=== PATIENT | male | born 1995 | race Two or more races ===

== ENCOUNTER 2017-05-02 10:41 | Emergency (ER) | payer MEDICAID, OTHER ==
[2017-05-02 11:00] VITALS: BP 111/70
[2017-05-02] MEDS ORDERED: Acetaminophen Soln 650 MG/20.3 ML UD Cup PO ONE (11:44)
[2017-05-02] MEDS ORDERED: LORazepam 2 MG/ML MDV IVPUSH ONE (11:44)
[2017-05-02] MEDS ORDERED: Sodium Chloride 0.9% 1,000 ML IV ONE (11:44)
--- NOTE | 2017-05-02 11:53 | EDM.PDOC ---
ED HPI GENERAL MEDICAL PROBLEM - General Chief Complaint: Neuro Symptoms/Deficits Stated Complaint: SEIZURE Time Seen by Provider: 05/02/17 11:24 Source of Information: Reports: Patient History Limitations: Reports: Language Barrier (Patient has broken romansh. Brother present to translate. ) - History of Present Illness INITIAL COMMENTS - FREE TEXT/NARRATIVE: Patient is a 21-year-old male with a history of epilepsy who experienced a grand mal seizure lasting approximately 2 minutes this morning at approximately 7:50. Patient was laying on the couch watching TV when this occurred. It was witnessed by his brother. Patient did not fall or hit his head. He did take about 5 minutes for the patient to come to and act appropriately. Since the seizure patient's had a headache with some dizziness and generalized body soreness. This is typical for the patient after experiencing a seizure. Last seizure was approximately 2 months ago. He did bite the right cheek and tip of the tongue. No incontinence to urine or stool There has been no changes to his medications. He has taken divalproex 500 mg extended release this morning. States the headache is located to his forehead with no radiation. Eyes are sensitive to light. No vision changes, loss of vision, or blurred vision. No recent fever or illness. Denies any stiff neck, SOB, chest pain, nausea/vomiting , abdominal pain, painful urination, weakness, numbness or tingling, or any additional complaints. Denies any recreational drug or alcohol use. Patient does smoke one pack per day. Drinks 2 monster energy drinks and caffeinated tea daily. Patient was diagnosed with epilepsy at 13 years of age of unknown etiology. He just recently moved from [place] to [place] in February. He does not have a primary care provider here locally. Headache Pain Score (Numeric/FACES): 4 - Related Data Allergies Allergy/AdvReac Type Severity Reaction Status Date / Time No Known Allergies Allergy Verified 05/02/17 11:48 Home Meds: Home Meds Divalproex Sodium [Divalproex Sodium ER] 250 mg PO BID #60 tab.sr.24h 05/02/17 [ Rx] Divalproex Sodium [Divalproex Sodium ER] 500 mg PO BID 05/02/17 [History] Past Medical History Neurological History: Reports: Seizure Social & Family History - Tobacco Use Smoking Status *Q: Current Every Day Smoker Years of Tobacco use: 7 Packs/Tins Daily: 1 - Caffeine Use Caffeine Use: Reports: None - Recreational Drug Use Recreational Drug Use: No ED ROS GENERAL - Review of Systems Review Of Systems: ROS reveals no pertinent complaints other than HPI. - Physical Exam Exam: See Below Exam Limited By: Language Barrier General Appearance: Alert, WD/WN, Other (Tired) Eye Exam: Bilateral Eye: EOMI, Nystagmus (none found), PERRL, Vision Changes ( none stated) Ears: Normal External Exam, Hearing Grossly Normal Nose: Normal Inspection Throat/Mouth: Normal Inspection, Normal Voice, No Airway Compromise, Evidence of Tongue Biting (and bite wound to the right cheek. ), Other Head Exam: Atraumatic, Normocephalic Neck: Normal Inspection, Supple, Non-Tender, Full Range of Motion. No: Lymphadenopathy (L), Lymphadenopathy (R) Respiratory/Chest: No Respiratory Distress, Lungs Clear, Chest Non-Tender Cardiovascular: Normal Peripheral Pulses, Regular Rate, Rhythm GI/Abdominal: Normal Bowel Sounds, Soft, Non-Tender, No Organomegaly, No Distention Neuro Exam (Abbreviated): Alert, Oriented, CN II-XII Intact, Normal Cognition, No Motor/Sensory Deficits, Other (Cerebellar function intact including: Finger- nose, [id number], rapid alternating movements. Patient has no facial droop. No slurred speech. No pronator drift. No weakness noted to the upper and lower extremities. No sensory deficits.) Back Exam: Normal Inspection Extremities: Normal Inspection, Normal Range of Motion, Non-Tender, No Pedal Edema, Normal Capillary Refill Psychiatric: Normal Affect, Normal Mood Skin Exam: Warm, Dry, Intact, Normal Color, No Rash Course - Vital Signs Last Recorded V/S: Last Vital Signs Temp 97.4 F 05/02/17 10:57 Pulse 69 05/02/17 10:57 Resp 16 05/02/17 10:57 BP 111/70 05/02/17 10:57 Pulse Ox 100 05/02/17 10:57 - Orders/Labs/Meds Labs: Laboratory Tests 05/02/17 05/02/17 Range/Units 11:55 11:55 WBC 7.61 (4.23-9.07) K/mm3 RBC 5.35 (4.63-6.08) M/mm3 Hgb 16.4 (13.7-17.5) gm/L Hct 45.4 (40.1-51.0) % MCV 84.9 (79.0-92.2) fl MCH 30.7 (25.7-32.2) pg MCHC 36.1 H (32.2-35.5) g/dl RDW Std Deviation 36.7 (35.1-43.9) fL Plt Count 155 L (163-337) K/mm3 MPV 11.0 (9.4-12.3) fl Neut % (Auto) 60.2 (34.0-67.9) % Lymph % (Auto) 29.0 (21.8-53.1) % [place] % (Auto) 8.9 (5.3-12.2) % Eos % (Auto) 1.3 (0.8-7.0) Baso % (Auto) 0.3 (0.1-1.2) % Neut # (Auto) 4.58 (1.78-5.38) K/mm3 Lymph # (Auto) 2.21 (1.32-3.57) K/mm3 [place] # (Auto) 0.68 (0.30-0.82) K/mm3 Eos # (Auto) 0.10 (0.04-0.54) K/mm3 Baso # (Auto) 0.02 (0.01-0.08) K/mm3 Sodium 141 (136-145) mEq/L Potassium 3.7 (3.5-5.1) mEq/L Chloride 104 (98-107) mEq/L Carbon Dioxide 28 (21-32) mEq/L Anion Gap 12.7 (5-15) BUN 8 (7-18) mg/dL Creatinine 0.7 (0.7-1.3) mg/dL Est Cr Clr Drug Dosing 157.95 mL/min Estimated GFR (MDRD) > 60 (>60) mL/min BUN/Creatinine Ratio 11.4 L (14-18) Glucose 107 H (74-106) mg/dL Calcium 8.7 (8.5-10.1) mg/dL Total Bilirubin 0.7 (0.2-1.0) mg/dL AST 17 (15-37) U/L ALT 30 (16-63) U/L Alkaline Phosphatase 61 (46-116) U/L Total Protein 6.8 (6.4-8.2) g/dl Albumin 3.8 (3.4-5.0) g/dl Globulin 3.0 gm/dL Albumin/Globulin Ratio 1.3 (1-2) Valproic Acid 40.8 L (50.0-100.0) ug/mL Meds: Medications Discontinued Medications Generic Name Dose Route Start Last Admin Trade Name Flo PRN Reason Stop Dose Admin Acetaminophen 975 mg 05/02/17 11:44 05/02/17 12:04 Tylenol PO 05/02/17 11:45 Not Given ONETIME ONE Acetaminophen 975 mg 05/02/17 12:01 05/02/17 12:04 Tylenol PO 05/02/17 12:02 975 mg NOW ONE Administration Sodium Chloride 1,000 mls @ 999 mls/hr 05/02/17 11:44 05/02/17 12:01 Normal Saline IV 05/02/17 12:44 999 mls/hr ONETIME ONE Administration Lorazepam 1 mg 05/02/17 11:44 05/02/17 12:03 Ativan IVPUSH 05/02/17 11:45 1 mg ONETIME ONE Administration - Re-Assessments/Exams Free Text/Narrative Re-Assessment/Exam: Labs reviewed: CBC and chem 14 essentially normal. Valproic acid level 40.8 which is low. Normal range is 50-100. Patient is receiving approximate 14 mg/kg of depakote er. Will titrate up to 22 mg/kg utilizing additional 250 mg of extended release twice a day. Unclear why he is taking depakote ER twice daily. We'll have this patient see a primary care provider here locally in the next week for reevaluation. He does not have a neurologist locally. Departure - Departure Time of Disposition: 12:57 Disposition: Home, Self-Care 01 Condition: Good Clinical Impression: Epilepsy Qualifiers: Epilepsy type: other generalized Intractability: not intractable Status epilepticus: without status epilepticus Qualified Code(s): G40.409 - Other generalized epilepsy and epileptic syndromes, not intractable, without status epilepticus - Discharge Information Prescriptions: Divalproex Sodium [Divalproex Sodium ER] 250 mg PO BID #60 tab.sr.24h Instructions: Epilepsy, [id number] Referrals: Flip Jackman [Physician] - Forms: ED Department Discharge Additional Instructions: CT of the head and labs did not reveal any acute findings. Your valproic acid level was low at 40.8. Therapeutic level is 50-100. Thus will adjust Depakote dosage to 750 mg twice a day. That will be additional depakote 250mg er tiwce a day. Please see a primary care provider here locally in the next week to establish care. Return to the E.D. as needed for any additional new or worsening symptoms.
[2017-05-02] MEDS ORDERED: Acetaminophen 325 MG Tab PO ONE (12:01)
--- NOTE | 2017-05-02 12:51 | CT ---
Head CT Technique: Multiple axial sections through the brain were obtained. Intravenous contrast was not utilized. Comparison: No prior intracranial imaging. Findings: Ventricles along with basal cisterns and sulci over the convexities are within normal limits. No abnormal parenchymal densities are seen. No evidence of intracranial hemorrhage. No midline shift or mass effect is seen. Bone window settings were reviewed which shows the visualized sinuses to appear clear. No acute calvarial abnormality is seen. Impression: 1. Nothing acute is identified on noncontrast head CT study. Diagnostic code #1
== END 2017-05-02 13:17 | disposition home or self-care (01) ==
LOC: JD.ED 10:41
DX: G40.409 Other generalized epilepsy and epileptic syndromes, not intractable, without status epilepticus (principal); F17.210 Nicotine dependence, cigarettes, uncomplicated
CPT/HCPCS: 36415; 70450; 80053; 80164; 85025; 96361; 96374; 99285; A9270; J2060; J7040; 99284